=== PATIENT | female | born 1995 | race Caucasian/White ===

== ENCOUNTER 2016-12-29 17:52 | Outpatient (CLI) | payer OTHER ==
[~2016-12-29] VITALS: Ht 154.9 cm; Wt 88.2 kg
[2016-12-29 19:46] VITALS: Ht 154.9 cm; Wt 88.2 kg
[2016-12-29] MEDS ORDERED: RANI150T3 PO (19:53)
[2016-12-29] MEDS ORDERED: PRENTAB26 PO (19:53)
[2016-12-29] MEDS ORDERED: CLR10 PO (19:53)
--- NOTE | 2016-12-29 21:37 | Progress Note ---
Progress Note Pt here for labor check\ pt is a from [facility] @ [facility] Monitored from 1600-2130hrs VE; unchanged 3-4cm Ct 2-5 Pt has been the same since this Am when she was seen at [place] office Plan Offered pt staying another 2 hrs for observation or going home pt wants to go home so she is discharged home with instructions
--- NOTE | 2016-12-29 21:39 | Discharge Instructions ---
Discharge Instructions Admission Reason for Admission: Check Labor Discharge Discharge Diagnosis / Problem: labor check Discharge Goals Goal(s): Continuing OB care Activity Recommendations Activity Limitations: as noted below SPECIAL CARE INSTRUCTIONS: Call Doctor if: * Regular contractions every 5 minutes or greater than contractions in one hour. * Bleeding * Water breaks or is leaking * Decreased movement * Fever >100.4 degrees F * Pain not relieved by routine measures or pain medication ordered. FOLLOW UP VISIT: Return to Labor and Delivery on for /call for appointment time . Follow-up Visit with: When: . Current Hospital Diet Patient's current hospital diet: Discharge Diet Recommended Diet: Regular Diet Pending Studies Studies pending at discharge: no Medical Emergencies . Who to Call and When: Medical Emergencies: If at any time you feel your situation is an emergency, please call 911 immediately. . Non-Emergent Contact Non-Emergency issues call your: Specialist . . "Provider Documentation" section prepared by Dima Gomez. VTE Core Measure Inpt VTE Proph given/why not?: Treatment not indicated
== END 2016-12-29 21:40 | disposition home or self-care (01) ==
LOC: C.OPB 17:52 → C.LD 17:54 → C.OPB 21:40
PROVIDERS: ATTEND Obstetrics & Gynecology
DX: Z34.83 Encounter for supervision of other normal pregnancy, third trimester (principal)